=== PATIENT | male | born 1980 | race African-American/Black ===

== ENCOUNTER 2016-11-27 18:15 | Emergency (ER) | payer SELFPAY ==
[~2016-11-27] VITALS: Ht 172.7 cm; Wt 56.7 kg
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
[2016-11-27 20:15] VITALS: BP 156/92
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
== END 2016-11-27 20:21 | disposition home or self-care (01) ==
LOC: ER 18:15
DX: S40.021A Contusion of right upper arm, initial encounter (principal); S30.0XXA Contusion of lower back and pelvis, initial encounter; S20.211A Contusion of right front wall of thorax, initial encounter; F17.200 Nicotine dependence, unspecified, uncomplicated; F12.10 Cannabis abuse, uncomplicated; Z90.89 Acquired absence of other organs; Z88.0 Allergy status to penicillin; Z89.412 Acquired absence of left great toe; V86.59XA Driver of other special all-terrain or other off-road motor vehicle injured in nontraffic accident, initial encounter; Y93.I9 Activity, other involving external motion; Y92.410 Unspecified street and highway as the place of occurrence of the external cause; Y99.8 Other external cause status
CPT/HCPCS: 71020; 72170; 99284-25